=== PATIENT | female | born 1960 | race Caucasian/White ===

== ENCOUNTER → 2016-04-06 | Outpatient (CLI) | payer OTHER ==
[~2016-04-06] MED LIST: FLAGYL 250250 MG/TAB PO; GLUCOSAMINE & C1 CA1 PO; LIBRAX 5 MG-2.51 CA1 PO; LIBRAX CAPSULE1 CAP PO; LIBRIUM 5MG5 MG/CAP PO; MULTI VITAMINS1 TAB PO; MVI PO; NORCO 325 MG-51 TAB PO; SYNTHROID0.05 MG/TA PO; SYNTHROID0.075 MG/T PO; TUMS500 MG PO; ZOLOFT 100MG100 MG PO; ZOLOFT50 MG PO
== END ==
LOC: MC.RAD 15:40
DX: Z12.31 Encounter for screening mammogram for malignant neoplasm of breast (principal)

== ENCOUNTER → 2016-08-04 | Outpatient (CLI) | payer BC | LOC: COL.LAB 10:34 | DX: E03.9 Hypothyroidism, unspecified (principal) ==

== ENCOUNTER 2016-09-26 06:55 | Day surgery (SDC) | payer BC ==
[~2016-09-26] VITALS: Ht 170.2 cm; Wt 67.5 kg
[~2016-09-26 06:55] MED LIST changes: -SYNTHROID0.075 MG/T PO; -ZOLOFT 100MG100 MG PO
[2016-09-26] MEDS ORDERED: SYNTHROID0.075 MG/T PO (07:18)
[2016-09-26] MEDS ORDERED: ZOLOFT 100MG100 MG PO (07:19)
[2016-09-26 07:20] VITALS: BP 134/93; PULSE 68; TEMP 98.5
[2016-09-26 09:18] VITALS: BP 122/72; PULSE 65; TEMP 97.8
[2016-09-26 09:30] VITALS: BP 110/79; PULSE 65
[2016-09-26 09:45] VITALS: BP 120/86; PULSE 61
[2016-09-26 10:34] VITALS: BP 102/73; PULSE 60
== END 2016-09-26 10:20 | disposition home or self-care (01) ==
LOC: SDCO 06:55
DX: K51.00 Ulcerative (chronic) pancolitis without complications (principal); K64.0 First degree hemorrhoids; E03.9 Hypothyroidism, unspecified; F32.9 Major depressive disorder, single episode, unspecified
CPT/HCPCS: OP; J2250; J3010; J7030

== ENCOUNTER → 2017-04-20 | Outpatient (CLI) | payer BC ==
[~2017-04-20] MED LIST changes: +SYNTHROID0.075 MG/T PO; +ZOLOFT 100MG100 MG PO
== END ==
LOC: COL.LAB 10:39
DX: E03.9 Hypothyroidism, unspecified (principal)

== ENCOUNTER → 2017-06-01 | Outpatient (CLI) | payer BC | LOC: MC.RAD 10:35 | DX: Z12.31 Encounter for screening mammogram for malignant neoplasm of breast (principal) ==

== ENCOUNTER → 2017-11-05 | Outpatient (CLI) | payer BC | LOC: COL.LAB 12:02 | DX: E03.9 Hypothyroidism, unspecified (principal) ==

== ENCOUNTER → 2018-03-29 | Outpatient (CLI) | payer BC ==
[2018-03-29 07:40] LABS: HEMATOCRIT 40.8 % (37.0-47.0); HEMOGLOBIN 13.4 g/dl (12.5-16.0); MEAN CELL VOLUME 93 fl (80.0-100.0); MEAN CORPUSCULAR HEMOGLOBIN 31 pg (27.0-31.0); MEAN CORPUSCULAR HGB CONC 33 g/dl (33.0-37.0); MEAN PLATELET VOLUME 9.6 fl (7.4-10.4); PLATELET COUNT 177 K/mm3 (130-400)
[2018-03-29 07:42] LABS: MUCOUS Present /lpf; PH 5 (5-8); SQUAMOUS EPITHELIAL 0-2 /hpf; URINE APPEARANCE Clear; URINE BACTERIA None Seen /hpf; URINE BILIRUBIN Negative (NEGATIVE); URINE BLOOD Negative (NEGATIVE); URINE COLOR Yellow; URINE GLUCOSE Negative (NEGATIVE); URINE KETONE Negative (NEGATIVE); URINE LEUKOCYTE ESTERASE Negative (NEGATIVE); URINE NITRATE Negative (NEGATIVE); URINE PROTEIN(semi-quant) Negative (NEGATIVE); URINE RBC 0-2 /hpf; URINE UROBILINOGEN Negative (NEGATIVE); URINE WBC 0-2 /hpf
[2018-03-29 07:50] LABS: BILIRUBIN,TOTAL 0.3 mg/dL (0.0-1.0); CALCIUM 9.2 mg/dL (8.4-10.2); CHOLESTEROL RISK RATIO 2.8; CREATININE, serum 0.76 mg/dL (0.52-1.25); POTASSIUM 4.2 mmol/L (3.4-5.0); TOTAL PROTEIN 6.8 gm/dL (6.4-8.2)
[2018-03-29 07:54] LABS: COLLECTION METHOD CLEAN CATCH
[2018-03-29 08:19] LABS: THYROID STIMULATING HORMONE 4.46 uIU/mL (0.465-4.680)
== END ==
LOC: COL.LAB 07:05
PROVIDERS: Family Medicine
DX: Z00.00 Encounter for general adult medical examination without abnormal findings (principal); Z13.29 Encounter for screening for other suspected endocrine disorder; Z13.220 Encounter for screening for lipoid disorders

== ENCOUNTER → 2018-05-23 15:30 | Outpatient (RCR) | payer BC | END | disposition home or self-care (01) | LOC: WSC 04-12 10:44 | DX: M47.812 Spondylosis without myelopathy or radiculopathy, cervical region (principal) ==

== ENCOUNTER → 2018-06-26 | Outpatient (CLI) | payer BC | LOC: COL.LAB 15:23 | DX: E03.9 Hypothyroidism, unspecified (principal) ==

== ENCOUNTER 2018-10-15 07:06 | Day surgery (SDC) | payer BC ==
[~2018-10-15] VITALS: Ht 170.2 cm; Wt 68.7 kg
[2018-10-15 07:45] VITALS: BP 109/93; PULSE 82; TEMP 98.3
[2018-10-15 09:05] VITALS: BP 120/86; PULSE 63
[2018-10-15 09:20] VITALS: BP 120/86; PULSE 63
--- NOTE | 2018-10-15 09:26 | NUR ---
PT DROWSY, ALERT TO NAME, PLACE AND TIME. DENIES NAUSEA, PAIN OR DISCOMFORT. TOLERATED WATER WELL, WANTS TO TRY SALTINE CRACKERS. VS ARE WITHIN LIMITS, WILL CONTINUE TO MONITOR.
[2018-10-15 09:35] VITALS: BP 122/88; PULSE 63
[2018-10-15 09:49] VITALS: BP 127/82; PULSE 60
--- NOTE | 2018-10-15 10:16 | NUR ---
Initial visit; Patient requested prayer prior to 'procedure.' [employer] offered spiritual care including prayer and God's blessings.
--- NOTE | 2018-10-15 10:34 | NUR ---
pt a/o, DENIES PAIN AND NAUSEA. TOLERATING ICE WATER. VS WITHIN LIMITS, WILL CONT TO MONITOR
--- NOTE | 2018-10-15 10:38 | NUR ---
PT TOLERATING SALTINE CRACKERS, PT DENIES PAIN, N/V. PT UP TO THE BATHROOM WITHOUT DIFFICULTY. IV DC'D TO RIGHT HAND, TOLERATED WELL. PT AMBULATED TO VISITORS ENTRANCE WITHOUT DIFFICULTY. DC'D TO HOME VIA FAMILY CAR, PRESENT.
--- NOTE | 2018-10-15 10:41 | NUR ---
1013 PT DC'D AND AMBULTATED OUT WITH NURSE TO FAMILY CAR, JOVANNA PICKING HER UP
== END 2018-10-15 10:13 | disposition home or self-care (01) ==
LOC: SDCO 07:06
DX: Z12.11 Encounter for screening for malignant neoplasm of colon (principal); K63.5 Polyp of colon; K51.90 Ulcerative colitis, unspecified, without complications; K64.0 First degree hemorrhoids; E03.9 Hypothyroidism, unspecified; F32.9 Major depressive disorder, single episode, unspecified; M19.042 Primary osteoarthritis, left hand; M19.041 Primary osteoarthritis, right hand; Z79.899 Other long term (current) drug therapy
CPT/HCPCS: J2704; J7030

== ENCOUNTER → 2018-10-16 | Outpatient (CLI) | payer BC | LOC: MC.RAD 13:50 | DX: Z12.31 Encounter for screening mammogram for malignant neoplasm of breast (principal) ==

== ENCOUNTER → 2019-11-07 | Outpatient (CLI) | payer BC | LOC: MC.RAD 10-22 11:30 | DX: Z12.31 Encounter for screening mammogram for malignant neoplasm of breast (principal) ==

== ENCOUNTER → 2021-01-25 | Outpatient (CLI) | payer BC | LOC: MC.RAD 11:27 | DX: Z12.31 Encounter for screening mammogram for malignant neoplasm of breast (principal) ==

== ENCOUNTER → 2023-04-03 | Outpatient (CLI) | payer BC | LOC: MC.RAD 14:06 | DX: Z12.31 Encounter for screening mammogram for malignant neoplasm of breast (principal) ==